=== PATIENT | female | born 1970 | race Caucasian/White ===

== ENCOUNTER → 2023-11-11 11:17 | Outpatient (BNVA) | payer BC, SELFPAY | PROVIDERS: Family Provider Family Medicine; Visit Provider Nurse Practitioner Family | DX: R53.83 Other fatigue (principal); Z79.899 Other long term (current) drug therapy | CPT/HCPCS: 82306; 82728; 83550; 84443; 85025 ==

== ENCOUNTER 2025-05-22 11:12 | Outpatient (CLI) | payer SELFPAY ==
--- NOTE | 2025-05-22 11:22 | XR_ITS ---
WS: [id number] Exam: XR cervical spine 3V* [id number] Date/Time of Exam: 05/22/2025 11:22 AM Reason For Exam: neck pain DLP: No fracture or malalignment. Disc spaces are preserved. Mild facet DJD at all levels. Normal paraspinal soft tissues. The dens is intact. There is straightening. IMPRESSION1. Mild facet DJD at all levels and straightening. 2. No fracture or malalignment.
== END 2025-05-22 11:13 | disposition home or self-care (01) ==
PROVIDERS: PCP Family Medicine; Visit Provider Family Medicine
DX: M47.892 Other spondylosis, cervical region (principal); R93.7 Abnormal findings on diagnostic imaging of other parts of musculoskeletal system
CPT/HCPCS: 72040